=== PATIENT | male | born 1945 | race Caucasian/White ===

== ENCOUNTER 2017-10-28 05:29 | Inpatient (IN) | payer OTHER ==
[2017-10-20 12:53] LABS: HEMATOCRIT 47.3 % (42.0-52.0); HEMOGLOBIN 16.5 gm/dL (14.0-18.0); MCH 31.2 pg (26.0-34.0); MCHC 34.9 g/dL (28.0-37.0); MCV 89.4 fL (80.0-100.0); RBC 5.29 mil/uL (4.50-6.00); RDW 13.9 % (10.5-14.5); WBC 8.9 thou/uL (4.0-11.0)
[2017-10-20 13:00] LABS: URINE BILIRUBIN NEGATIVE (Negative); URINE BLOOD NEGATIVE (Negative); URINE CLARITY CLEAR; URINE COLOR YELLOW; URINE GLUCOSE-RANDOM* NEGATIVE (Negative); URINE KETONES NEGATIVE (Negative); URINE LEUKOCYTES-REFLEX NEGATIVE (Negative); URINE NITRITE-REFLEX NEGATIVE (Negative); URINE PROTEIN (DIPSTICK) NEGATIVE (Negative); URINE UROBILINOGEN 0.2 E.U./dl (0.2-1.0)
[2017-10-20 13:04] LABS: ALBUMIN 3.8 g/dL (3.4-5.0); CALCIUM 9.3 mg/dL (8.5-10.1); CREATININE 1.4 mg/dL (0.7-1.3); POTASSIUM 4.5 mmol/L (3.5-5.1)
[2017-10-20 13:07] LABS: INR 1.1
[~2017-10-28] VITALS: Ht 180.3 cm; Wt 112.5 kg
--- NOTE | ~2017-10-28 | O ---
[facility] [place] [address] OPERATIVE REPORT Name: HEATHER MALAGON Room #: 419-P [facility] IN M.R.#: [id number] Admission: 10/28/17 Attend Phys: Oracio Tucker MD Discharge: 10/29/17 Date of : 47 Report #: [id number] THIS REPORT FOR: //name// CC: KAREN PERSAUD Physician staff Oracio Tucker DATE OF SERVICE: 10/28/2017 PREOPERATIVE DIAGNOSIS: Left knee osteoarthritis. POSTOPERATIVE DIAGNOSIS: Left knee osteoarthritis. PROCEDURE: Left total knee arthroplasty with Navio assistance. SURGEON: Oracio Tucker MD PROJECT CONTROL ANALYST: Joy Garibay PA-C INDICATION FOR ASSISTANCE: Throughout the case, extensive retraction and manipulation of the knee was required. This was afforded to me by my assistant secretary. ANESTHESIA: LMA with an adductor canal block. IMPLANTS: [employer] size 7 Legion cobalt chrome posterior stabilized femur, size 7 tibia, size 9 highly constrained polyethylene and a size 35 patella. TOURNIQUET TIME: 73 minutes. ESTIMATED BLOOD LOSS: 25 mL. COMPLICATIONS: None. SPECIMENS: None. CONDITION UPON LEAVING THE OPERATING ROOM: Stable. INDICATIONS FOR PROCEDURE: The patient is a 72-year-old gentleman who has severe left knee osteoarthritis. He had failed conservative measures for this. After discussion with him, he elected for left total knee arthroplasty. DESCRIPTION OF PROCEDURE: Risks, benefits, alternatives, complications were discussed in detail with the patient including but not limited to risk of anesthesia, risk of damage to nerves, arteries and blood vessels, risk for infection and bleeding, risk for continued knee pain, and need for reoperation. [facility] [address] [place] [address] OPERATIVE REPORT Name: HEATHER MALAGON Room #: 419-P DIS IN M.R.#: [id number] Admission: 10/28/17 Attend Phys: Oracio Tucker MD Discharge: 10/29/17 Date of : 47 Report #: [id number] Informed consent was obtained from the patient. Left knee was appropriately marked in the preoperative holding area. IV Ancef was given for preoperative antibiotics. Adductor canal block was placed by anesthesia. He was brought to the operating room and placed in supine position on the operating room table. LMA anesthesia was induced without complication. Tourniquet was placed on the left thigh. Left lower extremity was prepped and draped in normal sterile fashion. Timeout was performed properly identifying the patient and procedure as well as the instrumentation and implants. All in the operating room were in agreement. Left lower extremity was exsanguinated, tourniquet was inflated. Tourniquet time was 73 minutes. Standard midline approach to the knee was made with 10 blade through the skin. Dissection was taken down sharply to the fascia and deep flaps were developed medially and laterally. Fresh 10 blade was used to make a medial parapatellar arthrotomy and the knee was inspected. There was extensive tricompartmental osteoarthritic change. ACL and PCL were removed sharply. Osteophytes were removed from the femur and tibia. The reference pins for the Navio system were then placed in the tibia and the femur and the knee was then digitally mapped using a [employer] robotic system. Intraoperative plain was then made and we sized a size 7 femur and a size 7 tibia. After adequate planning and acceptance with the plan, the bur was used to make the distal femoral cut using the Navio bur system. After this, tibial resection was made using the Navio guidance for placement of the tibial resection guide. Flexion and extension gaps were checked and found to have good balance in flexion and extension both medially and laterally to manual testing. Tibia was sized, found to be a size 7. A size 7 tibial trial was placed. A size 7 femoral trial was placed and the box cut was made. This was trialed with a size 9 polyethylene. Knee was taken through range of motion and mapped digitally, found to be somewhat loose laterally in flexion and this was then trialed with a highly constrained implant and found to have much better stability both manually as well as digitally. After this, 9 mm was taken off the posterior surface of the patella and a size 35 patellar resurfacing button was placed. The knee was then taken through range of motion, found to be stable, found to have good patellar tracking. After this, trial components were removed. Bony ends were thoroughly irrigated with normal saline. A final size 7 tibia, a size 7 Legion cobalt chrome posterior stabilized femur and a size 35 patella were cemented in place using standard cementation techniques. While the cement cured, a periarticular injection consisting of morphine, ropivacaine, epinephrine and Toradol was placed around the knee joint. After the cement cured, the tourniquet was deflated. Hemostasis was obtained with Bovie cautery. Final size 9 highly constrained polyethylene was placed and found to have good balance and fit. Wound was thoroughly irrigated with normal saline. A gram of vancomycin was placed deep in the joint. Fascia was closed with 0 Vicryl, skin was closed with 2-0 Vicryl, 3-0 Monocryl. Dermabond and a LISET dressing was applied. The [address] [address] OPERATIVE REPORT Name: HEATHER MALAGON Room #: 419-P DIS IN M.R.#: [id number] Admission: 10/28/17 Attend Phys: Oracio Tucker MD Discharge: 10/29/17 Date of : 47 Report #: [id number] patient tolerated this procedure well and went to the recovery room under the care of anesthesia postoperatively. <ELECTRONICALLY SIGNED> By: Oracio Tucker MD 11/03/17 0748 [id number] 1735 Oracio Tucker MD /nt
--- NOTE | ~2017-10-28 | EKG ---
[place] [address] [address] [facility] [place] [address] ELECTROCARDIOGRAM REPORT Name: HEATHER MALAGON Room #: PRE IN ..#: [id number] Admission: Attend Phys: Oracio Tucker MD Discharge: Date of : 47 Report #: [id number] THIS REPORT FOR: //name// [facility] Test Date: 2017-10-20 Test Time: 12:54:10 Pat Name: HEATHER MALAGON Department: Room: Gender: Terminal Make Up Operator: Zack ROLDAN : 1945 Requested By: Oracio Tucker Order Number: [id number] MD: Robby Tolbert Measurements Intervals [place] Rate: 84 P: 54 TX: 163 QRS: -47 QRSD: 88 T: 31 QT: 359 QTc: 425 Interpretive Statements Sinus rhythm Left ventricular hypertrophy Left anterior hemiblock Baseline wander in lead(s) V3 No previous ECG available for comparison Electronically Signed On 10-21-2017 7:52:13 CDT by Robby Tolbert [email or web address] <ELECTRONICALLY SIGNED> By: Robby Tolbert MD, [facility] 10/21/17 0752 [id number] 1254 Robby Tolbert MD, FACC /EPI
[~2017-10-28 05:29] MED LIST: IBUPROFEN 600600 M1 PO; SYNTHROID125 MC1 PO; SYNTHROID137 MC1 PO; TYLENOL EXTRA500 MG PO; ZETIA10 MG PO
[2017-10-28 10:47] VITALS: BP 144/82
[2017-10-28 16:30] VITALS: BP 141/70
[2017-10-28 18:40] VITALS: BP 136/83
[2017-10-28 19:36] VITALS: BP 131/82
[2017-10-28 21:45] VITALS: BP 136/89
[2017-10-28 23:05] VITALS: BP 140/84
[2017-10-29 00:05] VITALS: BP 150/91
[2017-10-29 01:05] VITALS: BP 146/93
[2017-10-29 02:05] VITALS: BP 145/93
[2017-10-29 05:26] LABS: HEMATOCRIT 40.9 % (42.0-52.0); MCH 30.5 pg (26.0-34.0); MCHC 34.2 g/dL (28.0-37.0); RBC 4.59 mil/uL (4.50-6.00); RDW 13.7 % (10.5-14.5); WBC 15.2 thou/uL (4.0-11.0)
[2017-10-29 09:11] VITALS: BP 112/59
[2017-10-29] MEDS ORDERED: TRI-BUFFERED A325 M1 PO (10:36)
[2017-10-29] MEDS ORDERED: NEURONTIN 300300 M1 PO (10:36)
[2017-10-29 13:46] VITALS: BP 112/59
== END 2017-10-29 15:09 | disposition home or self-care (01) | DRG 470 ==
LOC: 4E 05:29 → TBA 05:29 → PRE 05:34 → 4E 16:22
PROVIDERS: Orthopaedic Surgery
PROC: 0SRD0J9 Replacement of Left Knee Joint with Synthetic Substitute, Cemented, Open Approach (ICD-10-PCS; principal; 2017-10-28)
DX: M17.12 Unilateral primary osteoarthritis, left knee (principal); M17.11 Unilateral primary osteoarthritis, right knee; Z79.899 Other long term (current) drug therapy; Z79.82 Long term (current) use of aspirin
CPT/HCPCS: 10783; 50010; 50101; 50415; 50954; 51130; 51225; 51771; 53000; 53078; 53364; 54118; 56527; 56528; 57095; 57103; 57109; 57110; 57113; 57127; 57180; 62110; 62900; 64042; 70005